=== PATIENT | female | born 1990 | race Caucasian/White ===

== ENCOUNTER → 2019-01-25 | Outpatient (CLI) | payer OTHER, SELFPAY ==
[2019-01-25 13:46] LABS: Hematocrit 34.2 % (37-47); Hemoglobin 11.2 g/dl (12.0-15.0); Mean Corp Hgb Conc 32.7 g/gl (32-36); Mean Corpuscular Hgb 29.3 pg (27.0-32.0); Mean Corpuscular Volume 89.5 fL (81-99); Mean Platelet Vol. 9.5 fl (6.2-12.0); Platelet Count 390 K/mm3 (150-450); RBC Distribution Width CV 13.9 % (11.6-14.6); RBC Distribution Width SD 45.2 fl (35.1-43.9); Red Blood Count 3.82 M/mm3 (4.2-5.4); White Blood Count 15.7 K/mm3 (4.4-11.0)
[2019-01-25 13:49] LABS: Scan Indicated on CBC? Y/N NO
[2019-01-25 14:09] LABS: AST(SGOT) 22 U/L (15-37); Alanine Aminotransfer ALT/SGPT 25 U/L (13-56); Uric Acid 4.9 mg/dL (2.6-6.0)
== END | disposition home or self-care (01) ==
LOC: LABSPEC 13:15
PROVIDERS: Visit Provider Obstetrics & Gynecology
DX: Z34.83 Encounter for supervision of other normal pregnancy, third trimester (principal)
CPT/HCPCS: 36415; 84450; 84460; 84550; 85027

== ENCOUNTER → 2019-02-14 06:47 | Outpatient (CLI) | payer OTHER, SELFPAY ==
[2019-02-14 08:08] LABS: Glucose GTT-Gestation. Fasting 125 mg/dL (<105)
[2019-02-14 08:53] LABS: Glucose GTT-Gestational 1 Hr 260 mg/dL (<190)
[2019-02-14 09:34] LABS: Glucose GTT-Gestational 2 Hr 260 mg/dL (<165)
[2019-02-14 10:45] LABS: Glucose GTT-Gestational 3 Hr 131 L (<145)
== END ==
PROVIDERS: Family Provider Family Medicine; PCP Family Medicine; Referring Provider Obstetrics & Gynecology; Visit Provider Obstetrics & Gynecology
DX: O24.912 Unspecified diabetes mellitus in pregnancy, second trimester (principal); Z3A.00 Weeks of gestation of pregnancy not specified
CPT/HCPCS: 36415; 82951; 82952

== ENCOUNTER 2019-02-15 13:10 | Outpatient (RCR) | payer OTHER, SELFPAY | END 2019-02-19 23:59 | disposition home or self-care (01) | LOC: DC 13:10 | PROVIDERS: Family Provider Family Medicine; PCP Family Medicine; Visit Provider Obstetrics & Gynecology | DX: O24.419 Gestational diabetes mellitus in pregnancy, unspecified control (principal) | CPT/HCPCS: 97802; G0108 ==

== ENCOUNTER 2019-02-28 10:38 | Outpatient (RCR) | payer OTHER, SELFPAY | END 2019-02-28 23:59 | disposition home or self-care (01) | LOC: DC 10:38 | PROVIDERS: Family Provider Family Medicine; PCP Family Medicine; Visit Provider Obstetrics & Gynecology | DX: O24.419 Gestational diabetes mellitus in pregnancy, unspecified control (principal) ==

== ENCOUNTER → 2019-03-23 13:11 | Outpatient (CLI) | payer OTHER, SELFPAY | PROVIDERS: Family Provider Family Medicine; PCP Family Medicine; Visit Provider Obstetrics & Gynecology | DX: Z36.85 Encounter for antenatal screening for Streptococcus B (principal) | CPT/HCPCS: 87081 ==

== ENCOUNTER 2019-04-06 05:35 | Inpatient (IN) | payer OTHER, SELFPAY ==
[2019-04-06] VITALS (22 sets, daily range): BP systolic 97–132; BP diastolic 48–87; PULSE 66–114; RESP 14–18; TEMP 36.1–36.9; O2SAT 96–100; BMI 42.0
[2019-04-06] MEDS: Lactated Ringers 1,000 ML 999 ML IV (06:00)
[2019-04-06 06:21] LABS: Bedside Glucose 104 mg/dL (70-110)
[2019-04-06 06:30] LABS: Absolute Lymphocyte Count 3.86 X10^3/uL (0.83-4.51); Absolute Neutrophil Count 10.1 X10^3/uL (2.0-7.7); Basophil# 0.03 X10^3/uL; Basophil% 0.2 % (0-1); Eosinophil# 0.38 X10^3/uL; Eosinophils% 2.4 % (0-5); Hematocrit 32.8 % (37-47); Hemoglobin 10.6 g/dL (12.0-15.0); Lymphocyte # 3.86 X10^3/ul (4.0); Lymphocyte % 24.6 % (19-41); Mean Corp Hgb Conc 32.3 g/dL (32-36); Mean Corpuscular Hgb 27.2 pg (27.0-32.0); Mean Corpuscular Volume 84.3 fL (81-99); Mean Platelet Vol. 9.7 fl (6.2-12.0); Monocyte# 1.14 X10^3/uL; Monocyte% 7.3 % (0-10); NRBC Flagged by Analyzer 0 % (0-5); Neutrophil # 10.14 X10^3/uL (2.7-7.7); Neutrophil % 64.7 % (47-70); Platelet Count 428 K/mm3 (150-450); RBC Distribution Width CV 13.5 % (11.6-14.6); RBC Distribution Width SD 41.7 fl (35.1-43.9); Red Blood Count 3.89 M/mm3 (4.2-5.4); White Blood Count 15.7 K/mm3 (4.4-11.0)
[2019-04-06] MEDS: Lactated Ringers 1,000 ML 150 ML IV (06:55)
--- NOTE | 2019-04-06 06:57 | HP.PCM_ITS ---
- Problem List (1) 37 weeks gestation of Status: Acute (2) Gestational diabetes Status: Acute Qualifiers: Gestational diabetes mellitus control: insulin-controlled (3) Chronic hypertension Status: Chronic History Date of Admission: 04/06/19 Final ZHANE: 04/27/19 Final ZHANE Source: US <20 weeks Gestational age: 37 Weeks and 2 Days History of this : This is a 28 year-old, G [1], P [0], at 37 weeks gestational age with hx chronic hypertension and uncontrolled gestational diabetes on insulin therapy presenting for scheduled section. US 03/27/19 estimated weight of 3628g (95th%) with AC measuring 5 weeks ahead (>99th). Medical History: Medical History (Last Updated 04/06/19 @ 07:04 by Unique Luciano MD) Abnormal Pap smear of cervix R87.619 2016 LGSIL In vitro fertilization Z31.83 TU-1 4G/5G genotype Z15.89 Hypertension I10 Surgical History: Surgical History (Last Updated 04/06/19 @ 07:00 by Unique Luciano MD) H/O ovarian cystectomy Z98.890, Z87.42 07/2016 Dr. Rodgers History of placement of ear tubes Z96.22 History of tonsillectomy and adenoidectomy Z98.890 Allergies Penicillins Allergy (Verified 04/06/19 05:51) Hives Home Medications: Home Medications Cholecalciferol (Vitamin D3) [Vitamin D3] 5,000 unit PO DAILY 04/06/19 Labetalol [Trandate (Beta Hector)] 200 mg PO TID 04/06/19 Lactobacill 46/B.animal/Inulin [Probiotic-10 10 Bill Cell Cap] 1 ea PO DAILY 04/06/19 Omeprazole [Prilosec] 20 mg PO DAILY 04/06/19 Pnv No.95/Ferrous Fum/Folic AC [ Vitamin Tablet] 1 ea PO DAILY 04/06/19 Ibuprofen [Motrin] 600 mg PO Q6H PRN PRN #30 tab 04/08/19 Oxycodone [Oxyir] 5 - 10 mg PO Q4H PRN PRN 7 Days #20 tab 04/08/19 Senna/Docusate Sodium [Senokot-S] 1 - 2 tab PO DAILY PRN #60 tab 04/08/19 metFORMIN (XR) [Glucophage Xr] 2 tab PO DAILY@1700 #60 tab 04/08/19 Smoking Status: Former smoker Alcohol: None Number of Fetus(es): 1 NST - FHR Rate Baby A Baseline: 132 bpm History Past Pregnancies: Past Pregnancies Delivery Date Name GA/Weeks Outcome Route Weight Gender Labor Length Anesthesia Delivery Location Provider FOB Labs: Mom's Problem List Problem Status Onset Code 37 weeks gestation of Acute Z3A.37 Gestational diabetes Acute O24.419 Chronic hypertension Chronic I10 Mom's Labs & Results 04/06/19 04/06/19 04/06/19 06:00 06:00 06:10 WBC 15.7 H RBC 3.89 L Hgb 10.6 L Hct 32.8 L MCV 84.3 MCH 27.2 MCHC 32.3 RDW Std Deviation 41.7 RDW Coeff of Wang 13.5 Plt Count 428 MPV 9.7 Immature Gran % (Auto) 0.800 Neut % (Auto) 64.7 Lymph % (Auto) 24.6 [place] % (Auto) 7.3 Eos % (Auto) 2.4 Baso % (Auto) 0.2 Absolute Neuts (auto) 10.1 H Absolute Lymphs (auto) 3.86 Nucleated RBC % 0 POC Glucose 104 Blood Type Pending Antibody Screen Pending Course Did the patient receive Yes care? Labs Blood Type: A RH: POSITIVE RPR/VDRL/Syphilis Nonreactive Rubella status Immune HbSAg Negative Date Done: 08/22/18 Chlamydia Negative Gonorrhea Negative HIV/AIDS Non-Reactive Group B Strep: Negative Current Obstetrical History Gestational Diabetes Yes Incompetent Cervix No Infertility Yes IUGR No Macrosomia No Hypertension/Pre-eclampsia No Placenta Previa/Abruption No PTL/PROM No Uterine anomaly No Oligohydramnios No Polyhydramnios Yes Multiple gestation No Past Medical History Asthma No Diabetes No Hypertension Yes Heart disease No Mitral valve prolapse No Neurologic/Seizure disorder/ No Migraines Kidney disease No Liver disease No Varicosities No Clotting disorders/Hx of DVT No Thyroid Dysfunction No Other medical diseases No Psychiatric disorders Yes: anxiety, xanax prn Major trauma No Abnormal PAP smear Yes: 2017 Sleep apnea No Mammogram in the last 2 years No Social History Marital Status: Alleged father Edward Hx Smoking No Smoking Status Former smoker Expected Infant Delivery Method: Scheduled Section Number of Visits: 15 Physical Exam Vitals: avss General: Alert, Oriented x3, Cooperative, No apparent distress HEENT: Atraumatic, Normocephalic Cardiovascular: Regular Rhythm Lungs: Normal air movement Abdomen: Soft, Non Tender, Non-Distended, Gravid Neurological: Neuro grossly intact Estimated gestational size: Appropriate for gestational size Presentation: Cephalic Assessment/Plan All Active Problems (Last Updated 04/06/19 @ 07:04 by Unique Luciano MD) 37 weeks gestation of (Acute) Gestational diabetes (Acute) This is a 28 year-old, G [1], P [], at 37 weeks gestational age, GDMA2 on insu scott -Proceed with section as planned
[2019-04-06] MEDS: Sodium Citrate/Citric Acid 30 ML UDC PO (07:10)
[2019-04-06] MEDS: Oxytocin 30 units/NS 500 ml 30 UNITS/500 ML IV.SOLN 167 UNITS IV (08:55)
[2019-04-06] MEDS: Lactated Ringers 1,000 ML 100 ML IV (12:01)
--- NOTE | 2019-04-06 13:30 | CPS ---
patient nursing, explained incentive
[2019-04-06] MEDS: Labetalol 200 MG Tablet PO ×2 (14:37→23:15)
[2019-04-06] MEDS: Ketorolac 30 MG/ML Syringe IV ×2 (14:37→20:11)
[2019-04-06] MEDS: 0.9% Saline Lock 10 ML Syringe IV (20:13)
--- NOTE | 2019-04-06 21:11 | PCM.OPRPT ---
Problem List (1) 37 weeks gestation of Status: Acute (2) Gestational diabetes Status: Acute Qualifiers: Gestational diabetes mellitus control: insulin-controlled (3) Chronic hypertension Status: Chronic Report of Operation Date of Procedure: 04/06/19 Pre-Operative Diagnosis: 37 weeks gestation, gestational diabetes mellitus, macrosomia Post-Operative Diagnosis: 37 weeks gestation, gestational diabetes mellitus, macrosomia Surgery/Procedure Performed:: Primary low transverse section auto brake mechanic: Kate Carroll Type of Anesthesia:: Spinal Anesthesiologist: Ritu Nunes Delivery Classification: Scheduled Final ZHANE: 04/27/19 Final ZHANE Source: US <20 weeks Gestational age: 37 Weeks and 0 Days Indications: 28-year-old 1 with gestational diabetes mellitus on insulin with poor control and macrosomia presents for scheduled section. Indications for : - - Primary elective section, macrosomia Description of Procedure: The patient was taken to the operating room and spinal analgesia was administered. She is placed in a dorsal supine position with left lateral tilt. The perineum and abdomen were prepped and draped in sterile fashion. And the spinal was found to be adequate. A Pfannenstiel incision was made using a scalpel and brought down to incise the subcutaneous tissue and rectus fascia at the midline. Subcutaneous tissue was bluntly dissected off the fascia laterally. The fascial incision was dissected laterally and cephalad using curved Miguel scissors. The superior leaflet of the rectus fascia was grasped using Jessie clamps and bluntly dissected and sharply dissected from the underlying rectus muscle. In a similar fashion the inferior rectus fascia was dissected from the underlying muscle. The rectus muscles were bluntly at the midline. The peritoneum was identified and entered [sharply]. The bladder blade was placed into the abdomen and the vesicouterine peritoneal fold identified. The fold was incised and a bladder flap created. Bladder blade was then repositioned to the abdomen. A low transverse hysterotomy was made using the [Metzenbaum scissors] to level of the membranes. The hysterotomy was extended bluntly cephalad and caudad. The membranes were then ruptured revealing clear fluid. The head was elevated and brought to the level of the hysterotomy and the infant delivered revealing vigorous [male] infant. The cord was doubly clamped and cut after 30 seconds. The was passed to awaiting [nursery personnel]. The placenta was [expressed] from the uterus and appeared intact on inspection. The uterus was cleared of debris. The hysterotomy was then repaired using 0 Vicryl running lock suture. A second imbricating layer was also placed for additional hemostasis. The bladder blade was removed. The anterior cul-de-sac was cleared of debris. The peritoneum and rectus muscles were reapproximated using 2-0 Vicryl running suture. The rectus fascia was closed using 0 stratafix running suture. The subcutaneous tissue was sponge irrigated and small capillary bleeding controlled using the Bovie device. The subcutaneous tissue was reapproximated using 2-0 Vicryl. The skin was closed using 4-0 Monocryl subcuticularly by the BUSINESS SOLUTIONS CONSULTANT under my supervision. a Mepilex occlusive dressing was placed over the incision. The fundus was firm. The patient was then transferred to the recovery room without complication. Sponge, instrument, and needle counts were correct ?2. Amniotic Fluid Description: Clear Placenta Disposition: [facility] Drain: South to straight drain Cord Entanglement: None Nuchal Cord Compression: Without compression Cord Vessel Description: 3 Vessels Esitmated Blood Loss (ml): 700 Infant Gender: Male (1 minute): 9 (5 minute): 9 Delayed cord clamping: Yes Pre-op Antibiotic Given: Ancef 2 grams IV x1 Pt instructed on risks of surgery: Bleeding, Anesthesia Risks, Infection, Failure Rate of 1 to 2%, Injury to surrounding structure(s) including bowel and bladder Complications: None - Admit VTE Documentation VTE Present on Admission: No VTE Mechan Device Prophylaxis: SCD's
[2019-04-06] MEDS: Acyclovir 200 MG Capsule 400 MG PO (23:15)
[2019-04-07] VITALS (11 sets, daily range): BP systolic 102–135; BP diastolic 39–78; PULSE 71–92; RESP 18; TEMP 36.6–36.9; O2SAT 96–100
[2019-04-07] MEDS: Ketorolac 30 MG/ML Syringe IV ×4 (01:45→20:29)
[2019-04-07] MEDS: 0.9% Saline Lock 10 ML Syringe IV ×4 (01:45→20:29)
[2019-04-07 05:31] LABS: Bedside Glucose 98 mg/dL (70-110)
[2019-04-07] MEDS: Acetaminophen 500 MG Tablet 1000 MG PO (06:19)
[2019-04-07 06:33] LABS: Hematocrit 24.3 % (37-47); Hemoglobin 7.7 g/dL (12.0-15.0); Mean Corp Hgb Conc 31.7 g/dL (32-36); Mean Corpuscular Hgb 26.8 pg (27.0-32.0); Mean Corpuscular Volume 84.7 fL (81-99); Mean Platelet Vol. 9.2 fl (6.2-12.0); Platelet Count 321 K/mm3 (150-450); RBC Distribution Width CV 13.9 % (11.6-14.6); Red Blood Count 2.87 M/mm3 (4.2-5.4); White Blood Count 11.9 K/mm3 (4.4-11.0)
[2019-04-07] MEDS: Pantoprazole Sodium 20 MG Tablet PO (07:36)
--- NOTE | 2019-04-07 08:30 | PCM.PN.OB ---
Patient Problems: Active and Suspected Problems (Last Updated 04/06/19 @ 07:04 by Unique Luciano MD) 37 weeks gestation of (Acute) Gestational diabetes (Acute) Subjective: Pain controlled, OOB to chair overnight. Passing flatus. Denies nausea, vomiting, chest pain, shortness of breath. Objective: AVSS - Physical Exam General: Alert, Oriented x3, Cooperative HEENT: Atraumatic, Normocephalic Lungs: Clear to auscultation, Normal air movement, No rhonchi, No wheeze, No rales Cardiovascular: Regular rate, Regular Rhythm, Normal S1, Normal S2 Abdomen: Bowel Sounds Present, Soft, Non Tender, Non-Distended, - - incisional dressing c/d/i, fundus firm and nontender, mild ecchymosis superior to incision Extremities: No Calf Tenderness, - - +ankle edema Neurological: Neuro grossly intact Psych/Mental Status: Normal Affect, Appropriate, Alert and oriented to time, place, person, mood and affect Vital Signs Temp Pulse Resp BP Pulse Ox 97.3 F L 85 18 131/59 H 96 04/08/19 02:18 04/08/19 06:28 04/08/19 02:18 04/08/19 06:28 04/08/19 02:18 Oxygen Flow Rate (L/min) 2 Oxygen Delivery Method Room Air Weight: 111.2 kg Body Mass Index (BMI) 42.0 Intake and Output for Last 24 Hours 04/06/19 04/07/19 04/08/19 23:59 23:59 23:59 Intake Total 2742 / 2742 Output Total 800 / 800 850 / 850 Balance 194 / 194 -850 / -850 Medical Necessity - Tobacco Use Smoking Status: Former smoker Assessment/Plan All Active Problems (Last Updated 04/06/19 @ 07:04 by Unique Luciano MD) 37 weeks gestation of (Acute) Gestational diabetes (Acute) This is a 28 year-old, G [1], P [1], POD#1 s/p PLTCS doing well. -hx PCOS, insulin resistance - Metformin -Ambulation encouraged -cHTN - continue Labetalol -Routine postop care - A positive, Rubella immune
[2019-04-07] MEDS: Prenatal Vits Tablet 1 TABLET PO (11:45)
--- NOTE | 2019-04-07 13:45 | CASEMGMT ---
Social Work Referral Date: 04/07/19 Date of Assessment: 04/07/19 Reason for Consult: Mother of baby (MOB) with history of depression/anxiety. Informant: Nursing staff, Dr. Giraldo Personal Status Mentation: MOB A&Ox3 Present during assessment: MOB and father of baby (FOB)> Hx : 1 Hx Para: 0 Gender: Male Name: Oliver Enamorado (1min): 8 (5min): 9 Care: Adequate Alleged father: Miguel Enamorado Alleged father involved: Yes Length of Relationship with alleged father of baby: MOB and FOB have been for 5 years. FOB Mental Health/AOD/Domestic Violence Hx: FOB?s denies. FOB Employment: Full-time job in [employer] Number of Children in the home: This is first for MOB and FOB. Custody Comments: MOB and FOB have full custody of this . 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 Family Dynamics/Relationships: MOB and FOB reporting positive family relationships and dynamics. Supports: MOB identifying MOB?s family and friends as main support. FOB?s family lives out of state. Transportation: MOB denies any concerns. Substance Abuse Hx and Current Pattern of Use MOB denies any history of Alcohol, Methamphetamine, Cocaine, Marijuana, Prescriptions Drugs, and Heroin. MOB reporting a history of smoking tobacco. Mental Health Hx and Current Status MOB reporting to have a history of anxiety and to have Xanax PRN if needed. MOB reporting to have not utilized Xanax for ?sometime.? MOB denies any Xanax usage during . MOB stating that current mood has been ?good.? MOB stating that only ?anxiety? during was night prior to having as was planned. MOB denies any history of suicidal thoughts/attempts. MOB denies any inpatient hospitalizations for psychiatric care. Items/Skills List for Infants Care Supplies: MOB reporting to have all needed supplies within the home (crib, infant clothing, car seat, diapers, formula etc.). Bonding With Infant: MOB and FOB reporting to have a connection with infant. Observed Maternal/Paternal Child interaction: Infant resting in bassinet during assessment. MOB and FOB gazing often towards infant. Emotional Assessment: MOB presenting with a positive and engaged affected during assessment. Assessment: Met with MOB and FOB in room with in bassinet sleeping during assessment. This social organization professor introduced self as well as social organization professor role. MOB and FOB open to speaking with this social organization professor. MOB stating to be and supplementing with formula. This social organization professor inquiring as to how MOB is doing with supplementing with formula. MOB stating that the plan was , but that MOB is aware that end goal is to have infant fed. MOB stating to be open to supplementing with formula but to be hopeful that MOB will be able to produce enough milk on own and will be able to latch appropriately. This social organization professor able to engage in conversation with MOB about the importance of being flexible with a new infant and having blu for both infant and self. MOB voicing understanding and appearing to be coping well. MOB denies any history of counseling services. This social organization professor encouraging MOB to speak with PCP with any concerns about mood or increased anxiety. This social organization professor engaged in conversation with MOB about depression signs and symptoms. MOB identifying no concerns with returning to home and transitioning to the community. Resources MOB provide with resources on depression, safe sleeping, Help Me Grow, and community resources provided. Intervention ?Social Work assessment ?Support provided Plan: MOB, FOB and to discharge to home. No further needs identified by social work.
[2019-04-07] MEDS: Labetalol 200 MG Tablet PO (14:45)
[2019-04-07] MEDS: metFORMIN (XR) 500 MG Tablet PO (17:07)
[2019-04-07] MEDS: Senna/Docusate Sodium 1 Tablet PO (18:49)
[2019-04-07] MEDS: Hydrocortisone 2.5% Crm 1 APPLIC TOPICAL (18:54)
[2019-04-07] MEDS: Acyclovir 200 MG Capsule 400 MG PO (22:44)
[2019-04-08 02:18] VITALS: BP 109/58; PULSE 72; RESP 18; TEMP 36.3; O2SAT 96
[2019-04-08] MEDS: Ketorolac 30 MG/ML Syringe IV ×2 (02:21→10:22)
[2019-04-08] MEDS: 0.9% Saline Lock 10 ML Syringe IV (02:21)
[2019-04-08 06:28] VITALS: BP 131/59; PULSE 85
[2019-04-08] MEDS: Labetalol 200 MG Tablet PO ×3 (06:47→22:07)
--- NOTE | 2019-04-08 07:57 | PCM.PN.OB ---
Patient Problems: Active and Suspected Problems (Last Updated 04/06/19 @ 07:04 by Unique Luciano MD) 37 weeks gestation of (Acute) Gestational diabetes (Acute) Subjective: Anjana passed gas and had a bowel movement. Little sleep overnight. She continues pumping, and supplementing infant. She reports a rash on her abdomen and something on her buttocks also. OOB and ambulating without difficulty. Objective: AVSS - Physical Exam General: Alert, Oriented x3, Cooperative HEENT: Atraumatic, Normocephalic Lungs: Normal air movement Cardiovascular: Regular rate, Regular Rhythm, Normal S1, Normal S2 Abdomen: Bowel Sounds Present, Soft, Non Tender, Non-Distended, - - Fundus firm and nontender, no rash or erythema present, + ecchymosis superior to incision. Dressing c/d/i Extremities: No Calf Tenderness Neurological: Neuro grossly intact Psych/Mental Status: Normal Affect, Appropriate, Alert and oriented to time, place, person, mood and affect Vital Signs Temp Pulse Resp BP Pulse Ox 97.3 F L 85 18 131/59 H 96 04/08/19 02:18 04/08/19 06:28 04/08/19 02:18 04/08/19 06:28 04/08/19 02:18 Oxygen Flow Rate (L/min) 2 Oxygen Delivery Method Room Air Weight: 111.2 kg Body Mass Index (BMI) 42.0 Intake and Output for Last 24 Hours 04/06/19 04/07/19 04/08/19 23:59 23:59 23:59 Intake Total 2742 / 2742 Output Total 800 / 800 850 / 850 Balance 1942 / 194 -850 / -850 Medical Necessity - Tobacco Use Smoking Status: Former smoker Assessment/Plan All Active Problems (Last Updated 04/06/19 @ 07:04 by Unique Luciano MD) 37 weeks gestation of (Acute) Gestational diabetes (Acute) This is a 28 year-old, G [1], P [1], POD#2 s/p PLTCS doing well. -Breast and bottlefeeding -hx PCOS, insulin resistance - continue Metformin -Ambulation encouraged -Buttock lesion likely from pad adhesive - hydrocortisone topical -Anemia and ecchymosis - will repeat CBC, likely hematoma present
--- NOTE | 2019-04-08 08:34 | PCM.DCCSEC ---
Discharge Diet: No Restrictions Discharge Activity: Return to Normal Activity, May not drive while taking narcotic pain medications., May Shower May resume sexual activity in: 4-6 weeks Lifting Restrictions: 10 lb Call your doctor if your incision/area has: Continuous Slow Oozing, Sudden Increased Bleeding, Increased Pain/ Swelling, Increased Redness, Foul Smelling Discharge Suture Line Care: Avoid Pulling/Pushing Remove Dressing in (days):: 3 Cleanse incision/area with: Soap & Water Additional Instructions: If you experience any of the following, contact your healthcare provider. Bleeding that soaks a pad every hour for 2 hours Fever 100.4 or higher Unrelieved incision or abdominal pain Swelling, redness, discharge or bleeding from your incision or episiotomy site Your incision begins to separate Problems urinating (including inability to urinate or burning while urinating). Visual changes Severe headache Flu-like symptoms Pain or redness in one of both of your breasts Pain, warmth, tenderness or swelling in your legs, especially the calf area Frequent nausea and vomiting Symptoms of depression or anxiety If you experience any of the following, call 911 or go to the nearest Emergency Room. Chest pain Problems breathing Seizure activity Partial or complete paralysis of a body part, slurred speech, weakness or drooping of the face, or a sudden inability to walk or hold your balance Allergies/Adverse Reactions: Allergies Penicillins Allergy (Verified 04/06/19 05:51) Hives Medications to take at Discharge Cholecalciferol (Vitamin D3) [Vitamin D3] 5,000 unit PO DAILY 04/06/19 Labetalol [Trandate (Beta Hector)] 200 mg PO TID 04/06/19 Lactobacill 46/B.animal/Inulin [Probiotic-10 10 Bill Cell Cap] 1 ea PO DAILY 04/06/19 Omeprazole [Prilosec] 20 mg PO DAILY 04/06/19 Pnv No.95/Ferrous Fum/Folic AC [ Vitamin Tablet] 1 ea PO DAILY 04/06/19 Ibuprofen [Motrin] 600 mg PO Q6H PRN PRN #30 tab 04/08/19 Oxycodone [Oxyir] 5 - 10 mg PO Q4H PRN PRN 7 Days #20 tablet 04/08/19 Senna/Docusate Sodium [Senokot-S] 1 - 2 tab PO DAILY PRN #60 tab 04/08/19 metFORMIN (XR) [Glucophage Xr] 2 tab PO DAILY@1700 #60 tab 04/08/19 The following prescriptions were given: metFORMIN (XR) [Glucophage Xr] 2 tab PO DAILY@1700 #60 tab Transmission Status: Pending to [facility] Ibuprofen [Motrin] 600 mg PO Q6H PRN PRN #30 tab PRN Reason: Mild Pain (1-10/30) Transmission Status: Pending to [facility] Oxycodone [Oxyir] 5 - 10 mg PO Q4H PRN PRN 7 Days #20 tablet PRN Reason: Mod-Severe Pain (-06/01) Transmission Status: Sent to [facility] Senna/Docusate Sodium [Senokot-S] 1 - 2 tab PO DAILY PRN #60 tab PRN Reason: Constipation Transmission Status: Pending to [facility] Follow-Up: Call to make an appointment with your doctor for an incision check in 1-2 weeks. You will also need a 6 week post- follow up appointment. Test results from this visit will be discussed in further detail at your follow-up appointment, if applicable. Please Follow Up With: Zane Hdz MD Primary Care Physician: Fransico Rothman MD [Primary Care Provider] -
[2019-04-08 09:15] LABS: Absolute Lymphocyte Count 2.37 X10^3/uL (0.83-4.51); Absolute Neutrophil Count 6.6 X10^3/uL (2.0-7.7); Basophil# 0.01 X10^3/uL; Basophil% 0.1 % (0-1); Eosinophil# 0.31 X10^3/uL; Eosinophils% 3.1 % (0-5); Hemoglobin 7.6 g/dL (12.0-15.0); Lymphocyte # 2.37 X10^3/ul (4.0); Lymphocyte % 23.5 % (19-41); Mean Corp Hgb Conc 31.7 g/dL (32-36); Mean Corpuscular Hgb 26.9 pg (27.0-32.0); Mean Corpuscular Volume 84.8 fL (81-99); Mean Platelet Vol. 9.3 fl (6.2-12.0); Monocyte# 0.77 X10^3/uL; Monocyte% 7.6 % (0-10); NRBC Flagged by Analyzer 0 % (0-5); Neutrophil # 6.57 X10^3/uL (2.7-7.7); Platelet Count 348 K/mm3 (150-450); RBC Distribution Width CV 13.8 % (11.6-14.6); RBC Distribution Width SD 42.7 fl (35.1-43.9); Red Blood Count 2.83 M/mm3 (4.2-5.4); White Blood Count 10.1 K/mm3 (4.4-11.0)
[2019-04-08 10:00] VITALS: BP 123/70; PULSE 93; RESP 16; TEMP 36.8
[2019-04-08] MEDS: Senna/Docusate Sodium 1 Tablet PO (10:19)
[2019-04-08] MEDS: Prenatal Vits Tablet 1 TABLET PO (10:19)
[2019-04-08] MEDS: Pantoprazole Sodium 20 MG Tablet PO (10:19)
[2019-04-08 14:00] VITALS: BP 117/67; PULSE 75; RESP 16; TEMP 36.9
[2019-04-08] MEDS: Ibuprofen 600 MG Tablet PO ×2 (14:46→22:06)
[2019-04-08] MEDS: metFORMIN (XR) 500 MG Tablet PO (17:20)
[2019-04-08 20:00] VITALS: BP 115/70; PULSE 80; RESP 18; TEMP 36.7
[2019-04-08 22:00] VITALS: BP 117/70
[2019-04-08] MEDS: Acyclovir 200 MG Capsule 400 MG PO (22:07)
[2019-04-09 02:00] VITALS: BP 126/69; PULSE 74; RESP 18; TEMP 36.6
[2019-04-09 06:20] VITALS: BP 119/72
[2019-04-09] MEDS: Labetalol 200 MG Tablet PO (06:26)
[2019-04-09] MEDS: Ibuprofen 600 MG Tablet PO (07:10)
[2019-04-09 08:20] VITALS: BP 115/76; PULSE 68; RESP 16; TEMP 36.7
--- NOTE | 2019-04-09 10:01 | PCM.PN.BLA ---
Progress Note Patient showering. Will return to assess.
--- NOTE | 2019-04-09 10:23 | DS.PCM_ITS ---
Discharge Date and Diagnosis - Problem List Patient Problems: Active and Suspected Problems (Last Updated 04/06/19 @ 07:04 by Unique Ruff MD) 37 weeks gestation of (Acute) Gestational diabetes (Acute) Date of Admission: 04/06/19 Date of Discharge: 04/09/19 - Primary Discharge Diagnosis Active and Suspected Problems (Last Updated 04/06/19 @ 07:04 by Unique Ruff MD) 37 weeks gestation of (Acute) Gestational diabetes (Acute) - Secondary Discharge Diagnosis Chronic Problems (Last Updated 04/06/19 @ 07:04 by Unique Luciano MD) Chronic hypertension (Chronic) Hospital Course and Treatment Operations: - - section Procedures: None Summary of Care Provided: The patient is a 28 year old F 1 with history of gestational diabetes - uncontrolled on insulin with macrosomia, chronic hypertension admitted at 37 weeks gestation for scheduled primary section. Her section was uncomplicated. Her postoperative course was complicated by abdominal wall hematoma with Hct nadiring to 24. She was out of bed, ambulating without difficulty and pain controlled. She was and pumping. She was started on Metformin for history of insulin resistance and blood pressures remained controlled. Patient Problems: Active and Suspected Problems (Last Updated 04/06/19 @ 07:04 by Unique Ruff MD) 37 weeks gestation of (Acute) Gestational diabetes (Acute) - Physical Exam Vital Signs Temp Pulse Resp BP Pulse Ox 98.1 F 68 16 115/76 96 04/09/19 08:20 04/09/19 08:20 04/09/19 08:20 04/09/19 08:20 04/08/19 02:18 Oxygen Flow Rate (L/min) 2 Oxygen Delivery Method Room Air Weight: 111.2 kg Body Mass Index (BMI) 42.0 Intake and Output for Last 24 Hours 04/07/19 04/08/19 04/09/19 23:59 23:59 23:59 Output Total 850 / 850 Balance -850 / -850 Discharge Diet: No Restrictions Discharge Activity: Return to Normal Activity, May not drive while taking narcotic pain medications., May Shower May resume sexual activity in: 4-6 weeks Call your doctor if your incision/area has: Continuous Slow Oozing, Sudden Increased Bleeding, Increased Pain/ Swelling, Increased Redness, Foul Smelling Discharge Suture Line Care: Avoid Pulling/Pushing Remove Dressing in (days):: 3 Cleanse incision/area with: Soap & Water Home Medications: Medications to take at Discharge Cholecalciferol (Vitamin D3) [Vitamin D3] 5,000 unit PO DAILY 04/06/19 Labetalol [Trandate (Beta Hector)] 200 mg PO TID 04/06/19 Lactobacill 46/B.animal/Inulin [Probiotic-10 10 Bill Cell Cap] 1 ea PO DAILY 04/06/19 Omeprazole [Prilosec] 20 mg PO DAILY 04/06/19 Pnv No.95/Ferrous Fum/Folic AC [ Vitamin Tablet] 1 ea PO DAILY 04/06/19 Ibuprofen [Motrin] 600 mg PO Q6H PRN PRN #30 tab 04/08/19 Oxycodone [Oxyir] 5 - 10 mg PO Q4H PRN PRN 7 Days #20 tab 04/08/19 Senna/Docusate Sodium [Senokot-S] 1 - 2 tab PO DAILY PRN #60 tab 04/08/19 metFORMIN (XR) [Glucophage Xr] 2 tab PO DAILY@1700 #60 tab 04/08/19 Ferrous Gluconate 325 mg PO BIDCM #60 tab 04/09/19 Following Prescrptions Were Given to Patient: Ferrous Gluconate 325 mg PO BIDCM #60 tab Prescription Printed metFORMIN (XR) [Glucophage Xr] 2 tab PO DAILY@1700 #60 tab Transmission Status: Received by [facility] Ibuprofen [Motrin] 600 mg PO Q6H PRN PRN #30 tab PRN Reason: Mild Pain (1-310) Transmission Status: Received by [facility] Oxycodone [Oxyir] 5 - 10 mg PO Q4H PRN PRN 7 Days #20 tab PRN Reason: Mod-Severe Pain (4-1010) Transmission Status: Received by [facility] Senna/Docusate Sodium [Senokot-S] 1 - 2 tab PO DAILY PRN #60 tab PRN Reason: Constipation Transmission Status: Received by [facility] Primary Care Physician: Fransico Rothman MD [Primary Care Provider] - Please Follow Up With: Zane Hdz MD Medical Necessity - Tobacco Use Smoking Status: Former smoker Meaningful Use Info Meaningful Use Diagnoses (Choose all that apply): None applicable
--- NOTE | 2019-04-09 10:27 | PCM.PN.OB ---
Patient Problems: Active and Suspected Problems (Last Updated 04/06/19 @ 07:04 by Unique Luciano MD) 37 weeks gestation of (Acute) Gestational diabetes (Acute) Subjective: Anjana reports her milk is coming in. She continues pumping. Pain is controlled. Her swelling has improved. Has mild right headache. Denies nausea, vomiting, vision changes. Objective: AVSS - Physical Exam General: Alert, Oriented x3, Cooperative HEENT: Atraumatic, Normocephalic Lungs: Normal air movement Cardiovascular: Regular rate, Regular Rhythm Abdomen: Soft, Non Tender, Non-Distended, - - fundus firm and nontender, ecchymotic lesions unchanged from prior and nontender Extremities: No Calf Tenderness, - - trace LE edema Neurological: Neuro grossly intact Psych/Mental Status: Normal Affect, Appropriate, Alert and oriented to time, place, person, mood and affect Vital Signs Temp Pulse Resp BP Pulse Ox 98.1 F 68 16 115/76 96 04/09/19 08:20 04/09/19 08:20 04/09/19 08:20 04/09/19 08:20 04/08/19 02:18 Oxygen Flow Rate (L/min) 2 Oxygen Delivery Method Room Air Weight: 111.2 kg Body Mass Index (BMI) 42.0 Intake and Output for Last 24 Hours 04/07/19 04/08/19 04/09/19 23:59 23:59 23:59 Output Total 850 / 850 Balance -850 / -850 Medical Necessity - Tobacco Use Smoking Status: Former smoker Assessment/Plan All Active Problems (Last Updated 04/06/19 @ 07:04 by Unique Luciano MD) 37 weeks gestation of (Acute) Gestational diabetes (Acute) This is a 28 year-old, G [1], P [1] POD#3 s/p PLTCS doing well. -hx GDM, PCOS - continue Metformin on discharge -Rx iron for anemia -Tylenol for headache -f/u with planned tomorrow -d/c home today
[2019-04-09] MEDS: Prenatal Vits Tablet 1 TABLET PO (10:42)
[2019-04-09] MEDS: Pantoprazole Sodium 20 MG Tablet PO (10:42)
[2019-04-09] MEDS: Acetaminophen 500 MG Tablet 1000 MG PO (10:42)
== END 2019-04-09 11:50 | disposition home or self-care (01) | DRG 786 ==
PROVIDERS: Admitting Provider Obstetrics & Gynecology; Family Provider Family Medicine; PCP Family Medicine; Referring Provider Obstetrics & Gynecology; Visit Provider Obstetrics & Gynecology
PROC: 10D00Z1 Extraction of Products of Conception, Low, Open Approach (ICD-10-PCS; CPT 59514; principal; 2019-04-06 07:15)
DX: O24.424 Gestational diabetes mellitus in childbirth, insulin controlled (principal); O60.14X0 Preterm labor third trimester with preterm delivery third trimester, not applicable or unspecified; O10.92 Unspecified pre-existing hypertension complicating childbirth; O36.63X0 Maternal care for excessive fetal growth, third trimester, not applicable or unspecified; Z87.891 Personal history of nicotine dependence; Z3A.37 37 weeks gestation of pregnancy; Z37.0 Single live birth; E28.2 Polycystic ovarian syndrome; O99.02 Anemia complicating childbirth; D64.9 Anemia, unspecified; O9A.22 Injury, poisoning and certain other consequences of external causes complicating childbirth; S30.1XXA Contusion of abdominal wall, initial encounter; X58.XXXA Exposure to other specified factors, initial encounter; Z79.4 Long term (current) use of insulin
CPT/HCPCS: 82962; 85025; 85027; 86850; 86900; 86901; 99218; J7120; A4216; G0378; J2405

== ENCOUNTER → 2019-05-18 15:30 | Outpatient (CLI) | payer OTHER, SELFPAY ==
[2019-04-06 06:11] VITALS: BMI 42.0
[2019-05-23 13:41] LABS: HPV APTIMA, High Risk Negative (Negative); HPV Reflexed? YES, CHARGE PATIENT
== END ==
PROVIDERS: Visit Provider Obstetrics & Gynecology
DX: Z12.4 Encounter for screening for malignant neoplasm of cervix (principal)
CPT/HCPCS: 87624; 88175; G0145

== ENCOUNTER → 2020-05-28 15:50 | Outpatient (CLI) | payer BC, SELFPAY ==
[2019-04-06 06:11] VITALS: BMI 42.0
[2020-06-01 13:58] LABS: HPV APTIMA, High Risk Negative (Negative)
[2020-06-01 13:59] LABS: HPV Reflexed? YES, CHARGE PATIENT
== END ==
PROVIDERS: Visit Provider Obstetrics & Gynecology
DX: Z12.4 Encounter for screening for malignant neoplasm of cervix (principal)
CPT/HCPCS: 87624; 88175; G0145

== ENCOUNTER → 2021-01-30 12:15 | Outpatient (CLI) | payer OTHER, SELFPAY ==
[2019-04-06 06:11] VITALS: BMI 42.0
[2021-01-30 12:38] LABS: Absolute Neutrophil Count 7.4 X10^3/uL (2.0-7.7); Basophil# 0.04 X10^3/uL; Basophil% 0.3 % (0-1); Color, Urine Straw (Yellow); Eosinophil# 0.23 X10^3/uL; Eosinophils% 1.9 % (0-5); Glucose, Dipstick Normal (Normal); Hematocrit 37.7 % (37-47); Hemoglobin 12.3 g/dL (12.0-15.0); Ketone-Dipstick Negative (Negative); Leukocyte Esterase-Dipstick Negative /ul (Negative); Lymphocyte % 29.9 % (19-41); Mean Corp Hgb Conc 32.6 g/dL (32-36); Mean Corpuscular Hgb 28.5 pg (27.0-32.0); Mean Corpuscular Volume 87.5 fL (81-99); Mean Platelet Vol. 9.1 fl (6.2-12.0); Monocyte# 0.93 X10^3/uL; Monocyte% 7.5 % (0-10); NRBC Flagged by Analyzer 0 % (0-5); Neutrophil # 7.43 X10^3/uL (2.7-7.7); Neutrophil % 60.2 % (47-70); Nitrite-Dipstick Negative (Negative); Occult Blood-Urine 25 /ul (Negative); Platelet Count 418 K/mm3 (150-450); Protein-Dipstick Negative (Negative); RBC Distribution Width CV 13.3 % (11.6-14.6); RBC Distribution Width SD 42.9 fl (35.1-43.9); Red Blood Count 4.31 M/mm3 (4.2-5.4); Specific Gravity, Urine 1.005 (1.002-1.030); Urine Bilirubin Dipstick Negative (Negative); Urine Clarity Clear (Clear); Urine Urobilinogen Normal (Normal); White Blood Count 12.4 K/mm3 (4.4-11.0)
[2021-01-30 12:57] LABS: Amphetamine Urine VISTA NEGATIVE (<1000 ng/mL); Barbiturate Urine VISTA NEGATIVE (< 200 ng/mL); Benzodiazepine Urine VISTA NEGATIVE (< 200 ng/mL); Cocaine Urine VISTA NEGATIVE (< 300 ng/mL); Ecstacy Urine VISTA NEGATIVE (< 500 ng/mL); Methadone Urine VISTA NEGATIVE (< 300 ng/mL); PCP Urine VISTA NEGATIVE (< 25 ng/mL); THC Urine VISTA NEGATIVE (< 50 ng/mL); Vista UDS pH Range 6
[2021-01-30 12:58] LABS: Hemoglobin A1c 6.4 % (3.8-5.6)
[2021-01-30 13:15] LABS: Thyroid Stim Hormone (TSH) 1.06 uIU/mL (0.358-3.74)
[2021-01-31 09:20] LABS: HIV - WCH Non-Reactive (Nonreactive); Hepatitis B Surface Antigen Non-Reactive (Nonreactive); Hepatitis C Antibody Non-Reactive (Nonreactive); Rubella IgG Reactive (Nonreactive); Syphilis Antibodies Non-reactive
[2021-02-01 00:11] LABS: Chlamydia By Nucleic Acid AMP Negative (Negative)
[2021-02-01 10:00] LABS: Gonococcus By Nucleic Acid AMP Negative (Negative)
== END ==
PROVIDERS: Visit Provider Obstetrics & Gynecology
DX: Z11.3 Encounter for screening for infections with a predominantly sexual mode of transmission (principal); Z34.81 Encounter for supervision of other normal pregnancy, first trimester
CPT/HCPCS: 80307; 81002; 83036; 84443; 85025; 86703; 86762; 86780; 86803; 87340; 87491; 87591

== ENCOUNTER → 2021-03-06 13:42 | Outpatient (CLI) | payer OTHER, SELFPAY ==
[2019-04-06 06:11] VITALS: BMI 42.0
--- NOTE | 2021-03-06 13:45 | VDLE_ITS ---
Reason For Study: pain and swelling RIGHT GSV is normal. CFV is compressible, spontaneous, phasic, competent and demonstrates normal augmentation. FV is compressible, spontaneous, phasic, competent and demonstrates normal augmentation. POP V is compressible, spontaneous, phasic, competent and demonstrates normal augmentation. T/P Trunk is compressible. PTV is compressible. RT PerV is compressible. Procedure Exam performed in department. This is a venous duplex using B-mode, color flow and spectral Doppler. The exam was abbreviated due to the COVID 19 protocol. The exam was diagnostic. A preliminary report was called and/or faxed to Dr. Unique Ruff. VL/Venous Duplex US, Unilateral Interpretation Summary Deep veins of the right lower extremity are patent and compressible segmentally . There is no evidence of right lower extremity deep vein thrombosis. Valvular competence jose raul ears intact within the proximal deep venous system on the right . The right great saphenous vein a ppears patent and compressible segmentally. Ordering Physician: Unique Otero Performed By: Brandon Irvin RVKelsey
== END ==
PROVIDERS: PCP Family Medicine; Referring Provider Obstetrics & Gynecology; Visit Provider Obstetrics & Gynecology
DX: O26.892 Other specified pregnancy related conditions, second trimester (principal); R22.41 Localized swelling, mass and lump, right lower limb; Z3A.00 Weeks of gestation of pregnancy not specified
CPT/HCPCS: 93971

== ENCOUNTER → 2021-03-28 15:37 | Outpatient (CLI) | payer OTHER, SELFPAY ==
[2019-04-06 06:11] VITALS: BMI 42.0
== END ==
PROVIDERS: PCP Family Medicine; Visit Provider Obstetrics & Gynecology
DX: N90.7 Vulvar cyst (principal)
CPT/HCPCS: 87070; 87077; 87186; 87205

== ENCOUNTER → 2021-05-21 16:50 | Outpatient (CLI) | payer OTHER, SELFPAY ==
[2021-05-24 03:07] LABS: Chlamydia By Nucleic Acid AMP Negative (Negative)
[2021-05-24 12:49] LABS: Gonococcus By Nucleic Acid AMP Negative (Negative)
== END ==
PROVIDERS: PCP Family Medicine; Visit Provider Obstetrics & Gynecology
DX: Z11.3 Encounter for screening for infections with a predominantly sexual mode of transmission (principal)
CPT/HCPCS: 87491; 87591

== ENCOUNTER → 2021-06-17 16:09 | Outpatient (CLI) | payer OTHER, SELFPAY ==
[2021-06-17 17:13] LABS: Hematocrit 30.8 % (37-47); Hemoglobin 9.7 g/dL (12.0-15.0); Mean Corp Hgb Conc 31.5 g/dL (32-36); Mean Corpuscular Hgb 26.4 pg (27.0-32.0); Mean Corpuscular Volume 83.9 fL (81-99); Mean Platelet Vol. 9.5 fl (6.2-12.0); Platelet Count 423 K/mm3 (150-450); RBC Distribution Width CV 13.7 % (11.6-14.6); RBC Distribution Width SD 42.3 fl (35.1-43.9); Red Blood Count 3.67 M/mm3 (4.2-5.4); White Blood Count 13.8 K/mm3 (4.4-11.0)
[2021-06-17 18:13] LABS: ALB/GLOB Ratio 0.5 RATIO (0.9-2.4); AST(SGOT) 15 U/L (15-37); Alanine Aminotransfer ALT/SGPT 19 U/L (13-56); Albumin, Serum 2.6 g/dL (3.2-5.0); Alkaline Phosphatase 93 U/L (45-117); Anion Gap 10 (5-15); BUN 10 mg/dL (7-18); BUN/Creat Ratio 16.7 RATIO (10-20); Calcium,Total 8.8 mg/dL (8.5-10.1); Chloride 102 mmol/L (98-107); EST Glomerular Filtration Rate 123 mL/min (>60); Est Glom Filt Rate - Afr Amer 149 mL/min (>60); Glucose 100 mg/dL (74-106); Potassium 3.7 mmol/L (3.5-5.1); Protein, Total 7.6 g/dL (6.4-8.2); Sodium Level 136 mmol/L (136-145)
== END ==
PROVIDERS: PCP Family Medicine; Visit Provider Obstetrics & Gynecology
DX: L29.9 Pruritus, unspecified (principal)
CPT/HCPCS: 36415; 80053; 85027

== ENCOUNTER 2021-07-11 12:05 | Outpatient (CLI) | payer OTHER, SELFPAY ==
[2021-07-11 12:19] VITALS: BMI 42.8
[2021-07-11 12:31] VITALS: BP 120/71; PULSE 80
[2021-07-11 12:34] VITALS: TEMP 36.6
--- NOTE | 2021-07-11 20:48 | OB.TRI.HP_ITS ---
HPI - General HPI Narrative DAMIAN RITTER, is a 31 F who presents for extended monitoring. She has a hx cHTN, pregestational diabetes on insulin. She presented for office monitoring with Cat II FHR with tachycardia and variable decelerations. [facility] Medical History (Updated 07/18/21 @ 10:[address] Unique Ruff MD) Abnormal Pap smear of cervix Hypertension In vitro fertilization TU-1 4G/5G genotype Home Medications PNV cmb#95-ferrous fumarate-FA 1 ea PO DAILY 04/06/19 [History Last Taken 04/05/19 10:00 1 tab] cholecalciferol (vitamin D3) 5,000 unit PO DAILY 04/06/19 [History Last Taken 04/05/19 10:00 5,000 unit] labetalol 200 mg PO BID 04/06/19 [History Last Taken 04/05/19 22:15 200 mg] omeprazole 20 mg PO DAILY 04/06/19 [History Last Taken 04/05/19 22:15 20 mg] ferrous gluconate 325 mg PO BIDCM #60 tab 04/09/19 [Rx Last Taken Unknown] insulin NPH isoph U-100 human [Novolin N NPH U-100 Insulin] See Rx Instructions .ROUTE .COMPLEX 07/11/21 [History Last Taken 07/11/21] insulin lispro [Humalog Pen] See Rx Instructions .ROUTE .COMPLEX 07/11/21 [History Last Taken 07/11/21] metformin 2 tab PO BID 07/11/21 [History Last Taken Unknown] Allergy/AdvReac Type Severity Reaction Status Date / Time Penicillins Allergy Intermediate Hives Verified 07/11/21 12:23 Surgical History (Updated 04/06/19 @ 07:[address] Unique Ruff MD) H/O ovarian cystectomy History of placement of ear tubes History of tonsillectomy and adenoidectomy Social History Smoking Status: Former smoker History Elective abortions Hx Para 0 Spontaneous abortions Hx # Term Pregnancies Ectopic pregnancies Hx # Pregnancies Multiple births # of living children NST FHR Rate Baby A Baseline: 120 Variability:: Moderate Accelerations:: 15 x 15 Decelerations:: Variable NST Reactive:: Yes FHR Category:: Category II Uterine Activity:: 0/10 Assessment & Plan (1) 32 weeks gestation of : PLAN: Cat I-II FHR with return to normal baseline and resolution of deep variables. Office US reassuring with BPP 04/01 (-2 for NST) Plan for d/c home
== END 2021-07-11 14:00 | disposition home or self-care (01) ==
LOC: WPOUT 12:18 → WP 12:18
PROVIDERS: PCP Family Medicine; Referring Provider Obstetrics & Gynecology; Visit Provider Obstetrics & Gynecology
DX: O36.8330 Maternal care for abnormalities of the fetal heart rate or rhythm, third trimester, not applicable or unspecified (principal); O10.913 Unspecified pre-existing hypertension complicating pregnancy, third trimester; O24.113 Pre-existing type 2 diabetes mellitus, in pregnancy, third trimester; Z3A.32 32 weeks gestation of pregnancy; Z79.4 Long term (current) use of insulin; Z87.891 Personal history of nicotine dependence
CPT/HCPCS: 59025; 59050; 99218; G0378

== ENCOUNTER → 2021-08-08 10:32 | Outpatient (CLI) | payer OTHER, SELFPAY ==
[2021-08-08 11:49] LABS: AST(SGOT) 15 U/L (15-37); Alanine Aminotransfer ALT/SGPT 21 U/L (13-56); Albumin, Serum 2.3 g/dL (3.2-5.0); Alkaline Phosphatase 137 U/L (45-117); Bilirubin, Direct < 0.05 mg/dL (0.00-0.30); Globulin 4.6 g/dL (2.2-4.2); Protein, Total 6.9 g/dL (6.4-8.2)
== END ==
PROVIDERS: PCP Family Medicine; Visit Provider Obstetrics & Gynecology
DX: O26.893 Other specified pregnancy related conditions, third trimester (principal); L29.9 Pruritus, unspecified; Z3A.00 Weeks of gestation of pregnancy not specified
CPT/HCPCS: 36415; 80076

== ENCOUNTER → 2021-08-11 10:12 | Outpatient (CLI) | payer OTHER, SELFPAY | PROVIDERS: PCP Family Medicine; Visit Provider Obstetrics & Gynecology | DX: Z03.818 Encounter for observation for suspected exposure to other biological agents ruled out (principal) | CPT/HCPCS: 87635; U0005; U0003 ==

== ENCOUNTER 2021-08-14 05:05 | Inpatient (IN) | payer OTHER, SELFPAY ==
[2021-08-14] VITALS (19 sets, daily range): BP systolic 94–139; BP diastolic 40–90; PULSE 74–93; RESP 11–20; TEMP 35.3–37.4; O2SAT 95–100; BMI 44.6
[2021-08-14] MEDS: Lactated Ringers 1,000 ML 999 ML IV (05:40)
[2021-08-14 05:57] LABS: Absolute Lymphocyte Count 2.87 X10^3/uL (0.83-4.51); Absolute Neutrophil Count 8.6 X10^3/uL (2.0-7.7); Basophil# 0.02 X10^3/uL; Basophil% 0.2 % (0-1); Eosinophil# 0.14 X10^3/uL; Eosinophils% 1.1 % (0-5); Hematocrit 35.1 % (37-47); Hemoglobin 11.3 g/dL (12.0-15.0); Lymphocyte # 2.87 X10^3/ul (0.83-4.51); Lymphocyte % 22.6 % (19-41); Mean Corp Hgb Conc 32.2 g/dL (32-36); Mean Corpuscular Hgb 27.1 pg (27.0-32.0); Mean Corpuscular Volume 84.2 fL (81-99); Mean Platelet Vol. 9.8 fl (6.2-12.0); Monocyte# 0.96 X10^3/uL; Monocyte% 7.6 % (0-10); NRBC Flagged by Analyzer 0 % (0-5); Neutrophil # 8.61 X10^3/uL (2.7-7.7); Neutrophil % 67.9 % (47-70); Platelet Count 288 K/mm3 (150-450); RBC Distribution Width CV 18.8 % (11.6-14.6); RBC Distribution Width SD 57.4 fl (35.1-43.9); Red Blood Count 4.17 M/mm3 (4.2-5.4); White Blood Count 12.7 K/mm3 (4.4-11.0)
[2021-08-14] MEDS: Acetaminophen 500 MG Tablet 1000 MG PO ×3 (06:00→17:45)
[2021-08-14 06:20] LABS: Bedside Glucose 95 mg/dL (70-110)
[2021-08-14] MEDS: Lactated Ringers 1,000 ML 150 ML IV (06:42)
[2021-08-14] MEDS: Sodium Citrate/Citric Acid 30 ML UDC PO (07:13)
--- NOTE | 2021-08-14 07:45 | PCM.HP.BLA ---
History and Physical Date of Admission: 08/14/21 ACOG ANTEPARTUM RECORD - HISTORY AND PHYSICAL (08/14/2021) Name: ANJANA ENAMORADO History of this : This is a 31 year old [id number] presents at 37 wks + 0 days gestation for repeat . PNC remarkable for needing insulin to control blood sugars. OB Physician: Zane Hdz MD 's Physician: [facility] ...................................................................... : 1990 Age: 31 Address: [address] [place] [address] Phone: H) [phone] (O) [phone] Insurance Carrier: [employer] [id number] Emergency Contact: CARMENCITA REINOSO [phone] ...................................................................... Final ZHANE: 09/04/21 By Ultrasound: 7 weeks 5 days PARITY: (G-Total Pregnancies P-Fullterm,Premature,Induced AB,Spont AB, Ectopics, Multiple,Living) ZHANE CONFIRMATION: By LMP: 11/27/20 Initial Exam: 09/04/21 By First Ultrasound Exam: 09/05/21 Final ZHANE: 09/04/21 OB PROBLEM LIST: ALLERGIC to PCN! Chronic HTN Labetalol EPDS today = 2 Genetic and carrier screening declined H/O anxiety, no current medications Has Type 2 DM on glyburide and metformin- on insulin last --[id number]=3.4 at 9 week visit High BMI Limit weight gain Insulin started 11 weeks by lathe spotter who follows blood sugars and adjusts meds; 3 units NPH at hs PA1 Heterozygote Lovenox SC bid discontinued 02/08/2021 Prior C/S at 37 weeks GA, plans R C/S at [facility] JAYCEE IVF x 1 attempt ALLERGIES: Pcn Penicillins Intolerance-unknown MEDICATIONS: aspirin 81 mg chewable tablet 1 tab po daily Glucophage XR 750 mg tablet,extended release One pill by mouth twice a day Labetalol 200 Mg Tablet One pill twice a day Novolin 70-30 FlexPen U-100 100 unit/mL (70-30) insulin pen 3 U at HS SC omeprazole 10 mg capsule,delayed release + DHA 28 mg iron- 975 mcg-200 mg combo pack daily Valtrex 500 mg tablet 1 tab po bid Vitamin C 1,000 mg tablet One pill by mouth once a day Vitamin D3 1,000 unit capsule One pill by mouth twice a day SOCIAL HISTORY: Smoking - used to smoke but quit Alcohol Use - denies drinking Diet - balanced Diet Lifestyle - Exercise - active 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 Illicit Drug Use - denies use of street drugs Sexual Activity - Residence - lives with Place of - [place], [place] Hours Worked - 40 hours per week Spouse-Sig Other Name - Miguel Enamorado Spouse-Sig Other Occupation - Susy Spouse-Sig Other Phone No - [phone] Children Name(s) - Oliver Stewart ('19) PRIOR DELIVERY HISTORY DEL DATE GEST LAB WT LB WT OZ TYPE ANES LABOR TX 15 Apr 12 37 0 7 14 C-Sec Spinal No ANTEPARTUM FLOW CHART VISIT GE RTC FU F F NV U U DATE WK MD WKS HT PN HR M SS BP ED WT NV GL D EF ST __ ____ ___ __ __ ___ __ __ __ ___ __ __ __ ___ __ 17 Jul SHM 1 36 V + + 126/72 sl 254 - - Jul JM 1 35 V + + O 122/76 sl 248 tr - 03 Jul SHM 1 V + + 136/70 sl 249 - - Jun + + 122/66 sl 246 - - Jun SHM 1 32 V + + 124/76 sl 247 tr - Jun CM + + 106/76 tr 244 tr - Jun SHM 1 31 + + 124/80 0 244 ne + Jun 19 JM 2 28 - + + 128/80 sl 243 tr - Jun 19 SHM 1 27 ? + ? 128/66 0 243 - - 0 0 h 14 May 17 SUMM 2 / 0 29 May 16 SHM 4 24 + + 130/82 sl 244 - - Apr 11 SHM 4 20 ? + + 142/82 sl 240 tr - Mar 06 SHM 4 + + 122/84 0 240 - - Mar 04 SHM 4 + O 122/74 0 241 - - Jan 31 JMW 4 U+ 134/72 0 237 ne ne 10 Jan 9 JMW 2 O 118/86 0 234 - - ANTEPARTUM NOTE(S): Aug 08 2021: Aug 01 2021: Blood sugars copied for review. Had TDAP this week. Jul 25 2021: Copy of blood sugars obtained Jul 16 2021: Jul 11 2021: Jul 07 2021: Jul 04 2021: Mild cramping, back pain off and on, doing well Jun 17 2021: feeling well. Itchy hands and feet more so evening time. AM Jun 13 2021: May 06 2021: home BPs reviewed by phone May 21 2021: see note Apr 22 2021: see prog note Mar 13 2021: see note Mar 05 2021: Lump on R lower leg Feb 13 2021: US today, insulin added per endocrinology Jan 30 2021: cold sx's, mild nausea, cxs done, brown discharge COMPREHENSIVE ANTEPARTUM NOTE(S): Aug 08 2021: Anjana is here at 36 w 1 d for her NST. She reports that she has fundal area discomfort since yesterday. Uterus is soft. She states a lot of cramping, BH ctx's, though nothing is regular. Spotting/LoF denied. Slight edema noted below knees. Palms of hands have been itching a lot, occasionally the soles of her feet also itch. She has a cough, which she feels is from sinus drainage. Nasal congesti Aug 08 2021: Repeat C/S scheduled for 08/14/21. Preop packet and preparationgs reviewed. Plan 1/2 pm NPH dosing - 40U night before surgery. Consents signed and reviewed. LFTs and bile acids today. Preeclampsia si/sx reviewed. Aug 01 2021: Anjana is here for her NST at 35 w 1 for cHTN (Labetalol) and DM (Insulin). She reports that she is feeling okay, but is tired. She brought her blood sugars for review. Anjana had her phone x ray developing machine operator consult on Wednesday this week, and also received her TDAP injection this week. She reports that she feels good FM. Anjana has been feeling a lot of irregular cramping/BH ctx's. She denies spotting/LoF. Sl Aug 01 2021: 35wk, NST reactive. Type II DM on NPH Novolog , discussed with M diatician diet two days ago. For MFM visit 08/05/21 for recommendations for delivery. Pt currently Scheduled for Wednesday BPP/Wednesday NST and visit. Pt currently scheduled for Repeat c/s at 37wks on 08/14/[address] Hdz. For GBS next visit. No celestone indicated. Jul 25 2021: Anjana is here for her NST at 34 w 1 d. She states that she is tired and sore, and having a lot of BH ctx's. She feels good FM. Anjana denies spotting/LoF. Slight edema noted around ankles. She reports that Wednesday night around 11:30 PM, her blood sugar dropped to 30. Blood sugars copied for review. Anjana felt left sciatic pain last night. NST reactive, acoustic stim used x 1. No uterine ctx's note Jul 25 2021: Elevated fasting blood sugars mostly 99-115. Few elevated postprandials, pt notes low blood sugars to 30s overnight. Continues to follow with Endo. On NPH , Novolog . I advised delivery at 37 weeks given poorly controlled DM and well controlled cHTN on Labetalol. Discussed risks of continued hyperglycemia including stillbirth, as well as risk for delivery including respiratory Jul 16 2021: Anjana is here for her NST at 32 w 6 day, BPP prior to NST today = 03/30. She states that she is tired, but okay. Anjana reports good FM. She denies LoF. Occasional mild cramping felt. Over the weekend she noted a little light spotting when I wiped a few times, none since. Slight edema noted below knees. NST reactive, read per Dr. Yusef Ruff. AW Jul 16 2021: US EFW 2325g (75th%), HC/AC 1.04, KENYA 17.5cm. BPP 03/30. Jul 11 2021: Copy of blood sugars for Dr ALBERT review. Feels she is might be leaking and exam to be done today. States just random leaky feeling with certain movements. LMT Jul 11 2021: Anjana is here for her NST at 32 w 1 d. She states that she is tired, as her young son woke up in the middle of the night, and did not go back to sleep for several hours. She reports that overall she is tired, but okay; just so ready to have this baby. Anjana states that she has been feeling some BH ctx's. Spotting denied, but she states that she has noted some clear vaginal drainage for about a w Jul 11 2021: PTL, ROM, FM precautions. Home FS reviewed with most elevated fastings and postprandial elevation later in the day. NST Cat II with moderate variability, + variable decelerations, no contractions however, BPP 8/10 (-2 for NST). Advised monitoring at L to confirm resolution of large variables with extended monitoring. Neg pool, nitrazine and fern. Jul 07 2021: Anjana is here following call to Triage w dec fm. Last known movement at 1800 07-06-21. FHT located w ervin. NST x 40 min. Anjana relieved to hear FHT. NST read as reactive per Dr BAILEY. Pt was advised to call [facility] after no movement, having icy drink w continuing no activity. Office staff available 15/03. Ana w HTN, Db, JAYCEE pg. She is agreeable. Liss DIAZ. Jun 17 2021: 28 weeks, growth ultrasound today AGA. Type 2 diabetes managed by endocrinology Kamala Davison TRAVEL SPECIALIST currently is on Humalog 24U qam 8U lunch 36U qpm also NPH 10U qam 56U qpm. Chronic hypertension on labetalol 10 mg twice daily. Itching of hands and feet, labs sent today including bile acids. Will consider growth ultrasound at 32 weeks and weekly BPP's until delivery. JM Jun 13 2021: Anjana here for PNV. Edema check good. She woke up with reddish brownish in her underwear. Has had pink this morning when wiping. She has had some tightness across the belly on and off since 6 am today. movement in the last 12 hours. Jun 13 2021: Urine long dip is negative. Vaginitis swab sent. LMT Jun 13 2021: Exam with no blood on SSE, some discharge noted - dfdx leukorrhea, infection. Cervix c/l/h. Vaginitis NAAT obtained. Recent GC/CT neg. US with normal placentation, no evidence of bleed, normal KENYA. Counseled on hydration. Si/sx labor reviewed. May 27 2021: Entry for 05/21/21: GC/CT today for recent spousal infidelity. Pt notes home BPs upper normal range to 140s/90s. Denies sx preeclampsia. Continues seeing Endocrinology with elevated hyperglycemia on NPH and mealtime insulin. Pt interested in TOLAC. Discussed delivery related risks, benefits. Pt understands > scheduled C/S > emergent C/S in terms of maternal and safety. Pt understands that May 21 2021: Anjana is being seen for PNV. Pt is 24 weeks and 6 days. is with pt for visit. Pt states she is feeling movements but they are not consistant. STD testing today. 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 She states she has nasal drainage. No glucose testing as pt is prior diabetic. AM Sep 2020: Call to patient as scheduled. Reveals found out spouse unfaithful and recently started counseling. She did not take BPs for a few days after news. Otherwise Home BPs 128-135/78-87. Will maintain Labetalol at 200mg bid. Reviewed preeclampsia precautions. ECHo scheduled for 05/12/21. Apr 22 2021: Anjana is here today for her visit with comp u/s. Patient states that she has been doing well but experiencing some burning on Rt side of abdomen states that worse when she is working and pushing W/c advised could be muscles stretching. patient verbalized understanding suggested that patient try a maternity support band and she was agreeable. Patient's bp slightly elevated with first ch Mar 28 2021: Anjana is here for evaluation of external cyst/gland that ruptured. She relates that she had edema and thought maybe she had yeast and tried Monistat with no relief. She then noticed some drainage from area and now area feels better and no more drainage at this time. LMT Mar 28 2021: as above. 30yo who is 17 1/7 weeks gestation with history of pregestational diabetes and followed by Endocrinology presents for c/o right genital swelling. She noted it 3-4 days ago and it was tender. This morning it ruptured with blood and pus. The swelling has since gone down. No prior similar episodes. Denies any trauma to area. No fever, chills, nausea, vomiting. Reports blood sugars as h Mar 13 2021: Anjana is here for visit. She expresses feeling of anxiety over this . She worries over possible loss or problem often. She notes that she feels better when she gets outside and does something. She denies any feelings of depression, self harm or harm to others. Mostly just feels anxious. achieved with IVF with PGD testing prior to procedure. They used the best embryo. S Mar 13 2021: IVF , had PGD, 46XX, hx pregestational DM on insulin and cHTN on Labetalol. BPs well controlled. Followed by Endo for blood sugars. Using mealtime insulin lispro 5u and long acting with some postprandial hyperglycemia. Discussed importance of glucose control, consider carb counting if difficulty controlling blood sugars. Discussed role of MFM in this given Endo managing glucose Mar 05 2021: Anjana is here for a PNV at 13 wks. Mild nausea present. Occasional cramping. Reports nodule on R lower leg, lateral side. Nodule appeared approx 3 days ago, tender to touch. It has since decreased in size but was initially an inch or two. Pt noticed a very blue vein leading into the nodule as well. She took aspirin for the duration of her last . She recently stopped doing the Lovenox in Mar 05 2021: Anjana has hx cHTN, DM, TU-1 heterozygosity and is 13 6/7 weeks gestational age with c/o right lower extermity swelling and tenderness. She had been on Lovenox for hx TU-1 and infertility. She discontinued this last month. She notes a R. lower leg nodule 3 days ago with painfulness. Denies redness, fever, chills. Feb 13 2021: Anjana is here for US and PNV. Has not had any spotting since last week on wednesday. Stopped Lovenox on 02-07-21. Feeling well. Nausea has subsided some. Able to eat and take fluids. Genetic packet given. Urine neg/neg. LSS Feb 13 2021: Anjana is here for her NOB visit following US and PNV with Dr. Hdz. She is a 30 year old with an ZHANE of 09/04/2021, current GA is 11 w 0 d. She resides with he , Miguel, and their nearly 2 year old son, Oliver. Anjana had a planned C/S at 37 weeks because of diabetes, and she plans to have a repeat C/S at [facility]. Past history updated. is planned. She states that Feb 04 2021: Anjana is here for Gómez Youssef labwork. Blood drawn by [facility] Second Watch Sergeant and procedure completed by this RN. Instructions to Anjana given for mailing specimen w understanding voiced. Liss DIAZ. Jan 30 2021: Anjana is here for a PNV at 9 wks. Pt was seen 01/28/21 for spotting, US normal. Intermittent spotting since US. Mild nausea present. Reports 2 red spots on L breast and sternum, unsure of cause. Will do GC/CHL cultures today, consent signed. Updated medications and allergies. Jan 28 2021: Anjana is here for u/s as she had IVF and very concerned about the brownish spotting. U/S shows viable IUP. She denies recent IC, vaginal itching, irritation. LMT REVIEW OF SYSTEMS: GENERAL - Denies fever, or chills SKIN - Denies rash, new skin lesions, or change in moles EYES - Denies blurred vision, or change in visual acuity EARS - Denies ear pain, or difficulty hearing NOSE - Denies nasal congestion, discharge, or bleeding MOUTH - Denies sore throat, or difficulty swallowing NECK - Denies pain or swelling RESPIRATORY - Denies shortness of breath, cough, wheezing CARDIOVASCULAR - Denies palpitations, chest pain, orthopnea, PND, peripheral edema, syncope or claudication GASTROINTESTINAL - Denies nausea, vomiting, diarrhea, constipation, Denies abdominal pain, melena and or bright red blood GENITOURINARY - Denies dysuria, frequency of urination, urgency, or hesitancy MUSCULOSKELETAL - Denies joint or muscle pain, or back pain NEUROLOGICAL - Denies localized numbness, weakness, or tingling PSYCHIATRIC - Denies depression, anxiety, substance abuse or suicide attempts ENDOCRINE - Denies heat or cold intolerance, weight loss or gain, increasing thirst HEMATO-IMMUNOLOGIC - Denies easy bruising, bleeding, oral ulcerations or recurrent infections GENETICS SCREENING: Age 35+ years: No Thalassemia: No Neural Tube Defect: No Down Syndrome: No KATIE-SACHS: No Sickle Cell Disease: No Hemophilia: No Musc. Dystrophy: No Cystic Fibrosis: No-declines screening [place] Chorea: No Mental Retardation: No Fragile X: No Other genetic: No Other defects: No SABs/still births: No Drugs since LMP: No Comments: FOB's father cleft palate INFECTION HISTORY: High risk AIDS: No High risk Hepatitis: No Exposed to TB: No Exposed to Herpes: No Rash/viral illness since LMP: No History of STD: No MENSTRUAL HISTORY: *Menses Amount/Duration: 6-7 daysMenses Regularity: irregularFrequency: variablePrior Menses Date: 08/29/2015Menarche (Age Onset): 9* PAST SUMMARY: PARITY: 1. Total Pregnancies............ 2 2. Full Term Pregnancies........ 1 3. Premature.................... 0 4. Abortions - Induced.......... 0 5. Abortions - Spontaneous...... 0 6. Ectopics..................... 0 7. Multiple Births.............. 0 8. Living Children.............. 1 PAST #1: Date of :.................. 04/06/21 Gestation Weeks:................ 37 Length of labor(hours):......... 0 Sex:............................ M Weight-lbs:............... 7 Weight-oz:................ 14 Type of Delivery:............... C-Sect Type of Anesthesia:............. Spinal Place of Delivery:.............. [place] Treatment of Labor?:.... No Comment: GEST. DM-INSULIN PHYSICAL EXAMINATION General Appearence: 31 yo female in no acute distress Vital Signs: AF, VSS Heart: RRR without rubs or gallops Lungs: CTA x 2 Breasts: deferred Abdomen: gravid Pelvis: Cervix: Presentation: cephalic Station: Fetus: Size: AGA Movement: present Heart: present Impression /Plan: 37 wks + 0 days intrauterine for repeat . Preparations in progress for delivery.
--- NOTE | 2021-08-14 08:36 | OP.PCM_ITS ---
Maternal Data Information Final ZHANE: 09/04/21 Final ZHANE Source: US <20 weeks Gestational age: 37w0d Details Operative Information Date of Procedure: 08/14/21 Pre-Operative Diagnosis: IUP, Gestational Diabetic on Insulin, Prior Section Post-Operative Diagnosis: IUP, Gestational Diabetic on Insulin, Prior Section Classification: Scheduled Procedure Type: low transverse risk management specialist #1: Ananya Chaudhari Type of Anesthesia: Spinal Anesthesiologist: Starr Isabel Antibiotic Given: Ancef 2 grams IV x1 Drain: South to straight drain Estimated Blood Loss: 500 cc Fluids Replaced: 1000 cc Procedure Start Time: 07:55 Time of Delivery: 07:59 Findings Description of Procedure: Surgeon: Zane Hdz MD, FACOG Procedure: Repeat Low Transverse Cervical Caesarean Section Indication: This is a 31-year-old who presents for her second at 37 weeks gestation. care has been remarkable for having gestational diabetes requiring insulin to control blood sugars. care has otherwise been uneventful. The patient has been counseled regarding the risk and indications of this procedure including the possibility of bleeding infection and injury to surrounding structures such as bowel bladder. All questions were answered. Procedure: Patient was taken to the operating room where after spinal anesthesia was placed, the patient was prepped and draped in usual sterile fashion and a South catheter was placed. The abdomen was entered through the patient's prior Pfannenstiel incision and peritoneum was entered bluntly. After developing a bladder flap on the lower uterine segment a low transverse incision was made on the uterus and head was easily delivered onto the operative field the nose mouth and oropharynx were bulb suctioned. Subsequently a viable female was born with Apgars of 9/9. The was noted to cry move all extremities vigorously on the operative field. The umbilical cord was doubly clamped and ligated and infant handed to the nursery personnel who were present for the delivery. Placenta was delivered and noted to be 3 vessels and normal. Uterus was exteriorized and remaining placental tissue was removed. The uterus was then closed in 2 layers first with running locked 0 Vicryl suture followed by a second imbricating layer with 0 Vicryl suture. 0 Vicryl suture was then used in a horizontal mattress interrupted fashion to affect final hemostasis of the uterine incision line. Normal fallopian tubes and ovaries were visualized and the uterus was returned to the pelvis. Hemostasis was noted and rectus abdominis muscles were reapproximated in the midline with interrupted Number 0 Vicryl suture in a horizontal mattress fashion. Fascia was closed with running Number 1 PDS Strata fix suture. Subcutaneous tissue was irrigated with copious amounts of saline solution and then closed with running 3-0 Vicryl suture. Skin was closed with 4-0 monocryl suture in a running subcuticular fashion. Steri strips and a Mepilex dressing were placed across the incision. The patient tolerated the procedure well and was taken to the recovery room in satisfactory condition. Sponge, needle, and instrument counts were all reportedly correct. EBL was less than 500 cc. Ancef 2 gms IV was given prior to the procedure. Spicemen to Pathology: None Presentation: Positive for Vertex Amniotic Fluid Description: Clear Placental Delivery Description: Spontaneous Placenta Disposition: [facility] Cord Vessel Description: 3 Vessels Cord Entanglement: None A Gender: Female (1 minute): 9 (5 minute): 9 Complications Risks of Surgery Discussed w/Patient: Bleeding, Infection and Injury to surrounding structure(s) including bowel and bladder Complications: None
[2021-08-14] MEDS: Oxytocin 30 units/NS 500 ml 30 UNITS/500 ML IV.SOLN 167 UNITS IV (09:00)
[2021-08-14] MEDS: Ketorolac 30 MG/ML Syringe IV ×3 (09:22→22:08)
[2021-08-14 10:10] LABS: Bedside Glucose 132 mg/dL (70-110)
[2021-08-14] MEDS: Senna/Docusate Sodium 1 Tablet PO (12:01)
[2021-08-14] MEDS: Lactated Ringers 1,000 ML 100 ML IV (12:02)
[2021-08-14] MEDS: Cefazolin 1 GM/50 ML BAG IV ×2 (15:40→22:11)
--- NOTE | 2021-08-14 17:19 | CM.ED ---
Addendum entered by Nenita Ward 08/14/21 17:52: Patient stated that she is looking forward to going home tomorrow. She said that she is hoping to go home as she has 3 raymon outfits for the nb. Nenita Sylvia BOILER BLOWERTaylor PEÑAISAIAS Original Note: SW Note Referral Source: scrummaster Reason: Per RN FOB had history of infidelity during pregancy, Per RN history of anxiety and depression Mom: Anjana PNC: Yusef Ruff EDC 09/04/21 37 weeks No Control. Patient reports that these are IVF babies. SW asked FOB to leave room so this production underwriter could talk to her privately. FOB agreed. Patient was interviewed privately. She was nursing and holding the nb while this production underwriter talked to her. Patient smiled throughout the assessment. Baby: Patient said that they are deciding between 3 names including Kavin and Ellen. Middle name will be Mandi : 09/14/20 Delivered via c section Apgars: 9/9 Business Continuity Coordinator: Olga Nelson Patient was . Patient said that she will breast feed or do however it takes to give her food. MOB's Other Children: Oliver, age 2. MOB reports that her parents are at the house watching Oliver. MOB said that her parents watch Oliver. MOB said that Oliver just came to the window to see the nb. Housing: Patient, FOB, Oliver and nb reside in a home in [facility] Transportation: No issues reported Supplies: Patient reports she has the carseat, bassinet, crib and diapers. Supports: Patient said that her will be a support when he is not working. Patient said that her mom is a support and she lives 12 minutes away. Patient said that her mom has already agreed to stay at the house to help. Education Level: High School and College Graduate. No learning issues or concerns. Employment: Patient is a teacher at [employer]. She indicated she may stay home to be with the nb and her son till the end of the school year as there IVF babies. Patient said that it is all dependent on her 's insurance. Agency Involvement: Patient's son, Oliver, receives speech therapy from [facility] [place]. Patient sees counselor, Rosario, at [facility] and FOB also sees a counselor at [facility]. Patient said that she took a break from counseling due to the nb's but plans to resume therapy. She said that she sees Rosario as a support. Patient said that she can text Rosario for appointment or support. No other agency involvement. FOB: Miguel for 7 years SW asked if FOChrissy will be involved with the nb and patient said as much as he can with his work. FOChrissy is a machine shop supervisor working at [employer] in [place]. She reports that FOB will go back to work next week but work day shift, whereas normally he works 12 hour shift leader. FOB MH/AOD and Domestic Violence History: Denied by patient Mental Health: Patient said that she acknowledges that there will be a new normal and will have anxiety related to the transition. Patient said that she has access to Xanax but has not used it 3-5 months prior to her getting . Patient denied any current SI/HI. Patient denied any past psych hospitalization or mental health treatment prior to current counseling. Chart indicates that patient reports FOB infidelity during . Patient's SI/HI screen on 08/14/21 was NO. Patient was educated on post depression, shaken baby an safe sleeping. Patient denied any smoking history. Patient denied any alcohol or drug use. Patient voiced she has no concerns going home but acknowledged it would be a transition. Patient said that she has access to her counselor and can call her OB if needs arise. SW provided patient with handouts that include counseling resources, HMG, on line PPD resources and PPD warm line. NORMAN spoke to the RN who indicated that patient was caring for the nb and that when she told fob to rub nb's feed he was receptive to direction and implemented her recommendations. RN said that it is obvious that they love the . Plan: Home with nb Nenita Ward
[2021-08-14] MEDS: metFORMIN (XR) 500 MG Tablet 1000 MG PO (17:46)
[2021-08-14 18:06] LABS: Bedside Glucose 120 mg/dL (70-110)
[2021-08-14] MEDS: Lactated Ringers 500 ML IV.SOLN. IV (18:38)
[2021-08-14] MEDS: Enoxaparin 40 MG/0.4 ML Syringe SC (20:19)
[2021-08-14 22:20] LABS: Bedside Glucose 135 mg/dL (70-110)
[2021-08-15 00:08] VITALS: BP 124/77; PULSE 77; RESP 18; O2SAT 97
[2021-08-15] MEDS: Acetaminophen 500 MG Tablet 1000 MG PO ×2 (00:15→06:28)
[2021-08-15 02:01] VITALS: RESP 18; O2SAT 97
[2021-08-15 04:40] VITALS: BP 124/71; PULSE 76; RESP 18; O2SAT 98
[2021-08-15] MEDS: Ketorolac 30 MG/ML Syringe IV (04:44)
[2021-08-15 05:35] LABS: Bedside Glucose 102 mg/dL (70-110)
[2021-08-15 05:35] LABS: Hematocrit 30.8 % (37-47); Hemoglobin 9.8 g/dL (12.0-15.0); Mean Corp Hgb Conc 31.8 g/dL (32-36); Mean Corpuscular Hgb 26.9 pg (27.0-32.0); Mean Corpuscular Volume 84.6 fL (81-99); Mean Platelet Vol. 9.8 fl (6.2-12.0); Platelet Count 281 K/mm3 (150-450); RBC Distribution Width CV 18.3 % (11.6-14.6); RBC Distribution Width SD 55.8 fl (35.1-43.9); Red Blood Count 3.64 M/mm3 (4.2-5.4); White Blood Count 13.4 K/mm3 (4.4-11.0)
[2021-08-15 06:02] VITALS: RESP 18
[2021-08-15 08:15] VITALS: BP 139/87; PULSE 80; RESP 16; TEMP 36.1; O2SAT 99
[2021-08-15] MEDS: metFORMIN (XR) 500 MG Tablet 1000 MG PO (08:17)
--- NOTE | 2021-08-15 09:50 | PN.OBGYN_ITS ---
Subjective Subjective Postop day 1 status post section lochia minimal. Breast-feeding going well. Sore but pain is controlled.. Objective Data Objective Data Vital Signs: Vital Signs Temp Pulse Resp BP Pulse Ox 97 F L 80 16 139/87 H 99 08/15/21 08:15 08/15/21 08:15 08/15/21 08:15 08/15/21 08:15 08/15/21 08:15 Oxygen Delivery Method Room Air Weight: 114.305 kg Body Mass Index (BMI) 44.6 Intake & Output: Intake and Output for Last 24 Hours 08/13/21 08/14/21 08/15/21 23:59 23:59 23:59 Intake Total 2464.16 / 2837.50 373.34 / 373.34 Output Total 450 / 450 1000 / 1000 Balance 2387.50 -626.66 / -626.66 Lab / Micro Data Result Diagrams: 08/15/21 05:25 Labs: Laboratory Results - last 24 hr 08/14/21 09:51: POC Glucose 132 H 08/14/21 17:49: POC Glucose 120 H 08/14/21 22:00: POC Glucose 135 H 08/15/21 05:25: WBC 13.4 H, RBC 3.64 L, Hgb 9.8 L, Hct 30.8 L, MCV 84.6, MCH 26.9 L, MCHC 31.8 L, RDW Std Deviation 55.8 H, RDW Coeff of Wang 18.3 H, Plt Count 281, MPV 9.8 08/15/21 05:26: POC Glucose 102 Physical Exam Const alert, oriented x3 and no apparent distress HEENT normocephalic Head and Scalp: atraumatic Neck full ROM Resp normal respiratory effort Cardio regular rate GI normal to inspection, nondistended, normoactive bowel sounds GI Narrative: Uterus 2 cm below umbilicus. Dressing clean and dry Back/Spine normal ROM Extremity normal to inspection Extremity Narrative: Minimal pedal edema Neuro no focal motor deficits and no sensory deficits noted Psych mental status grossly normal and affect normal Assessment & Plan (1) Delivery by section: PLAN: Postop day 1 status post section. Acute blood loss anemia secondary to surgery, iron supplement 3 times weekly at home. Complicated by chronic hypertension: Blood pressure stable without labetalol. Was on labetalol 200 mg twice daily. Patient has cuff at home and will check blood pressures daily and notify provider if elevating. Type 2 diabetes: Blood sugars controlled currently on Metformin 1000 mg twice daily. Patient has instructions for sliding scale per prototype special build for use at home. Will discharge home today. Will have 1 week postop visit. (2) Chronic hypertension: (3) Post-operative pain: (4) Type 2 diabetes mellitus:
--- NOTE | 2021-08-15 09:53 | DCINST_ITS ---
Discharge Instructions Diet Discharge Diet: No restrictions Activity Discharge Activity: Return to Normal Activity and May Shower May resume sexual activity in: 4-6 weeks Weight Bearing Status: Weight bearing as tolerated Lifting Restrictions: No greater than 25 pounds Dressing / Incision Call your doctor if your incision/area has: Continuous Slow Oozing, Sudden Increased Bleeding, Increased Pain/ Swelling, Increased Redness and Foul Smelling Discharge Call your doctor if you observe: Fever of 101 or Higher, Change in Color, I nability to urinate, Using more than 1 pad per hour, Shortness of breath, Dizziness, Swelling in the ankles, Chest pain and Calf discomfort Remove Dressing in: 1 week Cleanse incision/area with: Soap & Water Follow Up Care Please Follow Up With: Zane Hdz MD When: 1 week post op, 6 weeks Test Results: Test results from this visit will be discussed in further detail at your follow-up appointment, if applicable. Discharge Plan Admission Admit Date/Time: 08/14/21 05:05 Primary Reason for Your Visit: Section Attending Provider: Zane Hdz Primary Care Provider: Jus Joe Discharge Orders/Prescriptions Prescriptions: New oxycodone 5 mg Tablet 5 mg PO Q6H PRN (Reason: pain) 4 Days Qty: 16 RF: 0 Continued omeprazole 20 MG capsule 20 mg PO DAILY RF: 0 cholecalciferol (vitamin D3) 5,000 UNIT tablet 5,000 unit PO DAILY RF: 0 PNV cmb#95-ferrous fumarate-FA 1 EACH tablet 1 ea PO DAILY RF: 0 valacyclovir 500 mg tablet 500 mg PO BID RF: 0 ferrous gluconate 324 MG tablet 325 mg PO DAILY RF: 0 Discontinued labetalol 200 MG tablet 200 mg PO BID RF: 0 insulin lispro [Humalog Pen] 100 unit/mL Insulin Pen See Rx Instructions .ROUTE .COMPLEX RF: 0 Novolin N NPH U-100 Insulin 100 unit/mL Cartridge See Rx Instructions .ROUTE .COMPLEX RF: 0 aspirin 81 mg Capsule 81 mg PO DAILY RF: 0 No Action metformin 500 MG tablet extended release 24 hr 2 tab PO BID RF: 0 Referrals / Follow Up: Jus Joe MD [Primary Care Provider] - Disposition Disposition (needs filled in before D/C Order can be placed): Home, Self Care
[2021-08-15] MEDS: Senna/Docusate Sodium 1 Tablet PO (11:35)
[2021-08-15] MEDS: Enoxaparin 40 MG/0.4 ML Syringe SC (11:35)
[2021-08-15 11:36] LABS: Bedside Glucose 99 mg/dL (70-110)
--- NOTE | 2021-08-20 15:03 | NURSING ---
Follow up phone call completed to patient, feeling well, bleeding is improving. Pain worse this morning but states she lifted her toddler son multiple times- is taking it easy now. No fevers or drainage to her incision. States all her nurses were wonderful.
== END 2021-08-15 11:45 | disposition home or self-care (01) | DRG 787 ==
PROVIDERS: Admitting Provider Obstetrics & Gynecology; PCP Family Medicine; Referring Provider Pediatrics; Visit Provider Obstetrics & Gynecology
PROC: 10D00Z1 Extraction of Products of Conception, Low, Open Approach (ICD-10-PCS; CPT 59514; principal; 2021-08-14 07:15)
DX: O65.5 Obstructed labor due to abnormality of maternal pelvic organs (principal); D62 Acute posthemorrhagic anemia; O10.92 Unspecified pre-existing hypertension complicating childbirth; O34.211 Maternal care for low transverse scar from previous cesarean delivery; N85.8 Other specified noninflammatory disorders of uterus; O24.424 Gestational diabetes mellitus in childbirth, insulin controlled; Z3A.37 37 weeks gestation of pregnancy; Z37.0 Single live birth; Z88.0 Allergy status to penicillin; Z87.891 Personal history of nicotine dependence
CPT/HCPCS: 82962; 85025; 85027; 86850; 86900; 86901; 99218; 99251; J7120; G0378; G0463; J2405

== ENCOUNTER → 2022-02-27 | Outpatient (CLI) | payer OTHER, SELFPAY ==
[2022-02-27 12:51] LABS: Hemoglobin A1c 8.3 % (3.8-5.6)
[2022-02-28 08:57] LABS: Progesterone Level 20.37 ng/mL (See Comment)
[2022-03-03 16:31] LABS: HPV APTIMA, High Risk Negative (Negative)
== END | disposition home or self-care (01) ==
LOC: WOBLAB 12:10
PROVIDERS: PCP Family Medicine; Visit Provider Obstetrics & Gynecology
DX: E11.9 Type 2 diabetes mellitus without complications (principal); E28.2 Polycystic ovarian syndrome; Z12.4 Encounter for screening for malignant neoplasm of cervix
CPT/HCPCS: 36415; 83036; 84144; 87624; 88175; G0145